=== PATIENT | female | born 1975 | race Caucasian/White ===

== ENCOUNTER 2021-03-18 18:03 | Emergency (ER) | payer OTHER ==
[~2021-03-18] VITALS: Ht 170.2 cm; Wt 70.3 kg
--- NOTE | 2021-03-18 18:10 | NUR ---
The patient is bib her friend for laceration to l foot s/p cut with knife. Min bleeding noted. Rates pain 4/10. Will continue to monitor the patient.
--- NOTE | 2021-03-18 19:06 | NUR ---
CALLED OFFICE DR BRAVO, FOR CONSULT, MD CORRAL
[2021-03-18] MEDS ORDERED: SULF1TAB48 PO (19:18)
[2021-03-18] MEDS ORDERED: IBUP-1955 PO (19:18)
[2021-03-18] MEDS ORDERED: SULFAMETH/TRIMETH 800/160 MG 1 UDTAB TABLET PO ONE (19:30)
[2021-03-18] MEDS ORDERED: SULFAMETH/TRIMETH 800/160 MG 1 UDTAB TABLET ONE (19:35)
[2021-03-18 19:41] VITALS: BP 137/84
--- NOTE | 2021-03-18 19:41 | NUR ---
Patient discharged to home in stable condition. Written and verbal after care instructions given. Patient verbalizes understanding of instruction.Pt ambulatory with a steady gait
== END 2021-03-18 19:42 | disposition home or self-care (01) ==
LOC: ER 18:08
DX: S91.312A Laceration without foreign body, left foot, initial encounter (principal); Z79.899 Other long term (current) drug therapy; W26.0XXA Contact with knife, initial encounter; Y93.89 Activity, other specified; Y92.89 Other specified places as the place of occurrence of the external cause; Y99.8 Other external cause status
CPT/HCPCS: 12001; 99283; A6403